=== PATIENT | male | born 1990 | race American Indian/Alaskan Native ===

== ENCOUNTER 2016-10-08 18:45 | Emergency (ER) | payer BC ==
--- NOTE | 2016-10-09 00:28 | Emergency Department Report ---
ED General Adult HPI - General Chief complaint: Dental/Oral Stated complaint: SOB/PAIN ALL OVER/FATIGUE/FREQ URINATION Time Seen by Provider: 10/08/16 22:39 Source: patient Mode of arrival: Ambulatory Limitations: No Limitations - History of Present Illness Initial comments: Patient c/o right tooth ache and jaw pain that radiates into his right caodaism. States had a chip in the tooth 1 week ago. Reports frequent urination w/o dysuria, hesitance. - Related Data Home Medications Medication Instructions Recorded Confirmed Last Taken No Known Home Medications [No 10/08/16 10/08/16 Unknown Reported Home Medications] Allergies Allergy/AdvReac Type Severity Reaction Status Date / Time No Known Allergies Allergy Unverified 02/03/16 09:28 ED Review of Systems ROS: Stated complaint: SOB/PAIN ALL OVER/FATIGUE/FREQ URINATION Other details as noted in HPI ED Past Medical Hx - Past Medical History Previous Medical History?: No - Surgical History Past Surgical History?: No - Social History Smoking Status: Never Smoker Substance Use Type: Alcohol - Medications Home Medications: Home Medications Medication Instructions Recorded Confirmed Last Taken Type No Known Home Medications [No 10/08/16 10/08/16 Unknown History Reported Home Medications] ED Physical Exam - General Limitations: No Limitations ED Course Vital Signs 10/08/16 18:51 Temperature 98.5 F Pulse Rate 109 H Respiratory 18 Rate Blood Pressure 173/110 O2 Sat by Pulse 98 Oximetry Critical care attestation.: If time is entered above; I have spent that time in minutes in the direct care of this critically ill patient, excluding procedure time. ED Disposition Clinical Impression: Toothache, Frequent urination Disposition: DISCHARGED TO HOME OR SELFCARE Is pt being admited?: No Does the pt Need Aspirin: No Condition: Stable Instructions: Toothache (ED), Dysuria (ED) Referrals: PRIMARY CARE, [Primary Care Provider] - 2-3 Days
[2016-10-09 01:10] LABS: Bilirubin,Urine NEG (Negative); Blood,Urine NEG (Negative); Ketones,Urine 20 mg/dL (Negative); Leukocyte Esterase,Urine NEG (Negative); Mucus,Urine FEW /HPF; Nitrite,Urine NEG (Negative); Protein,Urine <15 mg/dL mg/dL (Negative); Urobilinogen,Urine < 2.0 mg/dL (<2.0)
[2016-10-09] MEDS ORDERED: TYLENOL #3 PO ONE (02:03)
--- NOTE | 2016-10-09 02:07 | Emergency Department Report ---
- HPI History of Present Illness: Patient c/o right tooth ache and jaw pain that radiates into his right protestant. States had a chipped tooth in question 1 week ago. Reports increasing thirst and frequent urination w/o dysuria, hesitance. Denies hx/tx of DM or HTN. - Exam Vital Signs: Vital Signs 10/08/16 18:51 Temperature 98.5 F Pulse Rate 109 H Respiratory 18 Rate Blood Pressure 173/110 O2 Sat by Pulse 98 Oximetry Physical Exam: General: Morbidly obese. NAD. MSE screening note: Focused history and physical exam performed. Due to findings the following was ordered: <GERMAN MARK - Last Filed: 10/09/16 05:53> - Exam Vital Signs: Vital Signs 10/08/16 10/09/16 10/09/16 18:51 02:13 02:15 Temperature 98.5 F 98.6 F Pulse Rate 109 H 99 H Respiratory 18 18 18 Rate Blood Pressure 173/110 Blood Pressure 133/92 [Left] O2 Sat by Pulse 98 96 Oximetry 10/09/16 10/09/16 10/09/16 03:30 04:00 05:00 Temperature 98 F Pulse Rate 92 H Respiratory 16 Rate Blood Pressure 115/69 151/84 Blood Pressure 147/79 [Left] O2 Sat by Pulse 98 100 96 Oximetry 10/09/16 10/09/16 10/09/16 06:00 07:00 07:06 Temperature Pulse Rate Respiratory Rate Blood Pressure 141/93 140/79 140/79 Blood Pressure [Left] O2 Sat by Pulse 98 98 98 Oximetry 10/09/16 09:23 Temperature 98.1 F Pulse Rate 90 Respiratory 16 Rate Blood Pressure Blood Pressure 130/76 [Left] O2 Sat by Pulse 99 Oximetry MSE screening note: Focused history and physical exam performed. Due to findings the following was ordered: <CARMEN TATUM - Last Filed: 10/10/16 15:18> Chief Complaint: Dental/Oral Stated Complaint: SOB/PAIN ALL OVER/FATIGUE/FREQ URINATION Time Seen by Provider: 10/08/16 22:39 ED Medical Decision Making - Lab Data Result diagrams: 10/09/16 02:20 10/09/16 02:20 - Medical Decision Making Patient to see MD in main ED. <GERMAN MARK - Last Filed: 10/09/16 05:53> - Lab Data Result diagrams: 10/09/16 02:20 10/09/16 02:20 <CARMEN TATUM - Last Filed: 10/10/16 15:18> ED Disposition for MITESH <GERMAN MARK - Last Filed: 10/09/16 05:53> <CARMEN TATUM - Last Filed: 10/10/16 15:18> Clinical Impression: Toothache, Diabetes mellitus, new onset Disposition: DISCHARGED TO HOME OR SELFCARE Condition: Stable Instructions: How to Check Your Blood Sugar (ED), Diabetes Mellitus Type 2 in Adults (ED), Toothache (ED) Additional Instructions: Is very important that you follow with the primary care doctor provided or with the doctor of your choice for further management of your new onset diabetes. You will need further diabetic teaching including how to check his sugar, dietary changes, weight loss advice, and further medication adjustment. Patient returns symptoms worsen as indicated by discharge instructions. Please follow up with a dentist regarding your fractured painful tooth. Prescriptions: metFORMIN [Glucophage] 500 mg PO BID #60 tablet Ibuprofen [Motrin] 800 mg PO Q8HR PRN #30 tablet PRN Reason: Pain traMADol [Ultram 50 MG tab] 50 mg PO Q6HR PRN #20 tablet PRN Reason: Pain Penicillin Vk [Veetids TAB] 250 mg PO QID #28 tablet Referrals: PRIMARY CARE, [Primary Care Provider] - 2-3 Days JESSICA HEATH MD [Staff Physician] - 3-5 Days
[2016-10-09 02:35] LABS: Basophils % (Auto) 0.6 % (0.0-1.8); Eosinophils % (Auto) 0.9 % (0.0-4.3); Hematocrit 46.3 % (35.5-45.6); Hemoglobin 14.6 gm/dl (11.8-15.2); Mean Corpuscular HGB Conc 32 % (32-34); Mean Corpuscular Volume 78 fl (84-94); Platelet Count 230 K/mm3 (140-440); Red Blood Count 5.94 M/mm3 (3.65-5.03); Red Cell Distribution Width 14.7 % (13.2-15.2); White Blood Count 5.5 K/mm3 (4.5-11.0)
[2016-10-09 02:38] LABS: Mean Corpuscular Hemoglobin 25 pg (28-32)
[2016-10-09 02:57] LABS: Alanine Aminotransferase 25 units/L (7-56); Albumin 4.4 g/dL (3.9-5); Albumin/Globulin Ratio 1.2 %; Alkaline Phosphatase 74 units/L (35-129); BUN/Creatinine Ratio 9.09; Bilirubin,Total 0.5 mg/dL (0.1-1.2); Blood Urea Nitrogen 10 mg/dL (9-20); Calcium 9.4 mg/dL (8.4-10.2); Carbon Dioxide 22 mmol/L (22-30); Chloride 90.4 mmol/L (98-107); Potassium 5.2 mmol/L (3.6-5.0); Sodium 133 mmol/L (137-145); Total Protein 8.2 g/dL (6.3-8.2)
[2016-10-09] MEDS ORDERED: NACL 0.9% 1000 ML 1,000 ML IV ONE ×3 (03:08→08:04)
[2016-10-09] MEDS ORDERED: TORADOL IV ONE (03:08)
[2016-10-09 03:15] LABS: Anion Gap 26 mmol/L
[2016-10-09 03:16] LABS: Glucose 530 mg/dL (75-100)
--- NOTE | 2016-10-09 03:23 | Emergency Department Report ---
ED General Adult HPI - General Chief complaint: Dental/Oral Stated complaint: SOB/PAIN ALL OVER/FATIGUE/FREQ URINATION Time Seen by Provider: 10/08/16 22:39 Source: patient Mode of arrival: Ambulatory Limitations: No Limitations - History of Present Illness Initial comments: 26-year-old obese male with no known past medical history presents to the hospital complains of toothache and generalized body aches. Patient states for the past 1-2 weeks he has had generalized body aches, and today cramping to lower extremities, polyuria, dry mouth, increased thirst. Positive family history of diabetes presents by personal history. Patient also complains of moderate to severe toothache from a cracked tooth 1 week. Pain as aching with radiation to the right ear and right head. No reports of fever. Severity scale (0 -10): 8 - Related Data Previous Rx's Medication Instructions Recorded Last Taken Type Ibuprofen [Motrin] 800 mg PO Q8HR PRN #30 tablet 10/09/16 Unknown Rx Penicillin Vk [Veetids TAB] 250 mg PO QID #28 tablet 10/09/16 Unknown Rx metFORMIN [Glucophage] 500 mg PO BID #60 tablet 10/09/16 Unknown Rx traMADol [Ultram 50 MG tab] 50 mg PO Q6HR PRN #20 tablet 10/09/16 Unknown Rx Allergies Allergy/AdvReac Type Severity Reaction Status Date / Time No Known Allergies Allergy Unverified 02/03/16 09:28 ED Review of Systems ROS: Stated complaint: SOB/PAIN ALL OVER/FATIGUE/FREQ URINATION Other details as noted in HPI Comment: All other systems reviewed and negative Other: Constitutional: No fevers chills Eyes: No eye pain visual changes ENT: As per HPI Neck: Denies pain Respiratory: Denies cough wheezing shortness of breath Cardiovascular: Denies chest pain, palpitations, syncope GI: Denies abdominal pain, nausea, vomiting, diarrhea : Denies dysuria Musculoskeletal: Denies back pain Skin: Denies rash, lesions, erythema Neurologic: Denies headache, numbness, weakness Psychiatric: Denies suicidal ideation, hallucinations ED Past Medical Hx - Past Medical History Previous Medical History?: No - Surgical History Past Surgical History?: No - Social History Smoking Status: Never Smoker Substance Use Type: Alcohol - Medications Home Medications: Home Medications Medication Instructions Recorded Confirmed Last Taken Type Ibuprofen [Motrin] 800 mg PO Q8HR PRN #30 tablet 10/09/16 Unknown Rx Penicillin Vk [Veetids TAB] 250 mg PO QID #28 tablet 10/09/16 Unknown Rx metFORMIN [Glucophage] 500 mg PO BID #60 tablet 10/09/16 Unknown Rx traMADol [Ultram 50 MG tab] 50 mg PO Q6HR PRN #20 tablet 10/09/16 Unknown Rx ED Physical Exam - General Limitations: No Limitations - Other Other exam information: General: No limitations, patient is alert in no acute distress Head exam: Atraumatic, normocephalic Eyes exam: Normal appearance, pupils equal reactive to light, extraocular movements intact ENT: No thrush, cracked tooth #30 with out any gum abscess Neck exam: Normal inspection, full range of motion, no meningismus nontender Respiratory exam: Clear to auscultation bilateral, no wheezes, rales, crackles Cardiovascular: Normal rate and rhythm, normal heart sounds Abdomen: Soft, nondistended, and nontender, with normal bowel sounds, no rebound, or guarding Extremity: Full range of motion normal inspection no deformity Back: Normal Inspection, full range of motion, no tenderness Neurologic: Alert, oriented x3, cranial nerves intact, no motor or sensory deficit Psychiatric: normal affect, normal mood Skin: Warm, dry, intact ED Course Vital Signs 10/08/16 10/09/16 10/09/16 18:51 02:13 02:15 Temperature 98.5 F 98.6 F Pulse Rate 109 H 99 H Respiratory 18 18 18 Rate Blood Pressure 173/110 Blood Pressure 133/92 [Left] O2 Sat by Pulse 98 96 Oximetry 10/09/16 03:30 Temperature 98 F Pulse Rate 92 H Respiratory 16 Rate Blood Pressure Blood Pressure 147/79 [Left] O2 Sat by Pulse 98 Oximetry - Reevaluation(s) Reevaluation #1: 10/09/16 03:22 Repeat blood pressure showed spontaneously improved without medication. Normal saline, insulin, and Toradol ordered ED Medical Decision Making - Lab Data Result diagrams: 10/09/16 02:20 10/09/16 02:20 Lab Results 10/08/16 10/09/16 10/09/16 Range/Units 00:51 02:20 02:20 WBC 5.5 (4.5-11.0) K/mm3 RBC 5.94 H (3.65-5.03) M/mm3 Hgb 14.6 (11.8-15.2) gm/dl Hct 46.3 H (35.5-45.6) % MCV 78 L (84-94) fl MCH 25 L (28-32) pg MCHC 32 (32-34) % RDW 14.7 (13.2-15.2) % Plt Count 230 (140-440) K/mm3 Lymph % (Auto) 46.0 H (13.4-35.0) % [place] % (Auto) 10.0 H (0.0-7.3) % Eos % (Auto) 0.9 (0.0-4.3) % Baso % (Auto) 0.6 (0.0-1.8) % Lymph # 2.5 (1.2-5.4) K/mm3 [place] # 0.6 (0.0-0.8) K/mm3 Eos # 0.0 (0.0-0.4) K/mm3 Baso # 0.0 (0.0-0.1) K/mm3 Seg Neutrophils % 42.5 (40.0-70.0) % Seg Neutrophils # 2.3 (1.8-7.7) K/mm3 Sodium 133 L (137-145) mmol/L Potassium 5.2 H (3.6-5.0) mmol/L Chloride 90.4 L (98-107) mmol/L Carbon Dioxide 22 (22-30) mmol/L Anion Gap 26 mmol/L BUN 10 (9-20) mg/dL Creatinine 1.1 (0.8-1.5) mg/dL Estimated GFR > 60 ml/min BUN/Creatinine Ratio 9.09 % Glucose 530 H* (75-100) mg/dL POC Glucose (70-105) Calcium 9.4 (8.4-10.2) mg/dL Total Bilirubin 0.5 (0.1-1.2) mg/dL AST 26 (5-40) units/L ALT 25 (7-56) units/L Alkaline Phosphatase 74 (35-129) units/L Total Protein 8.2 (6.3-8.2) g/dL Albumin 4.4 (3.9-5) g/dL Albumin/Globulin Ratio 1.2 % Urine Color Straw (Yellow) Urine Turbidity Clear (Clear) Urine pH 6.0 (5.0-7.0) Ur Specific [place] 1.037 H (1.003-1.030) Urine Protein <15 mg/dl (Negative) mg/dL Urine Glucose (UA) >=500 (Negative) mg/dL Urine Ketones 20 (Negative) mg/dL Urine Blood Neg (Negative) Urine Nitrite Neg (Negative) Urine Bilirubin Neg (Negative) Urine Urobilinogen < 2.0 (<2.0) mg/dL Ur Leukocyte Esterase Neg (Negative) Urine WBC (Auto) 1.0 (0.0-6.0) /HPF Urine RBC (Auto) 2.0 (0.0-6.0) /HPF Urine Mucus Few /HPF 10/09/16 Range/Units 04:19 WBC (4.5-11.0) K/mm3 RBC (3.65-5.03) M/mm3 Hgb (11.8-15.2) gm/dl Hct (35.5-45.6) % MCV (84-94) fl MCH (28-32) pg MCHC (32-34) % RDW (13.2-15.2) % Plt Count (140-440) K/mm3 Lymph % (Auto) (13.4-35.0) % [place] % (Auto) (0.0-7.3) % Eos % (Auto) (0.0-4.3) % Baso % (Auto) (0.0-1.8) % Lymph # (1.2-5.4) K/mm3 [place] # (0.0-0.8) K/mm3 Eos # (0.0-0.4) K/mm3 Baso # (0.0-0.1) K/mm3 Seg Neutrophils % (40.0-70.0) % Seg Neutrophils # (1.8-7.7) K/mm3 Sodium (137-145) mmol/L Potassium (3.6-5.0) mmol/L Chloride (98-107) mmol/L Carbon Dioxide (22-30) mmol/L Anion Gap mmol/L BUN (9-20) mg/dL Creatinine (0.8-1.5) mg/dL Estimated GFR ml/min BUN/Creatinine Ratio % Glucose (75-100) mg/dL POC Glucose 388 H (70-105) Calcium (8.4-10.2) mg/dL Total Bilirubin (0.1-1.2) mg/dL AST (5-40) units/L ALT (7-56) units/L Alkaline Phosphatase (35-129) units/L Total Protein (6.3-8.2) g/dL Albumin (3.9-5) g/dL Albumin/Globulin Ratio % Urine Color (Yellow) Urine Turbidity (Clear) Urine pH (5.0-7.0) Ur Specific [place] (1.003-1.030) Urine Protein (Negative) mg/dL Urine Glucose (UA) (Negative) mg/dL Urine Ketones (Negative) mg/dL Urine Blood (Negative) Urine Nitrite (Negative) Urine Bilirubin (Negative) Urine Urobilinogen (<2.0) mg/dL Ur Leukocyte Esterase (Negative) Urine WBC (Auto) (0.0-6.0) /HPF Urine RBC (Auto) (0.0-6.0) /HPF Urine Mucus /HPF - Medical Decision Making pt glucose improved with ed tx. pt has mild hyperkalemia that should improve after Regular insulin IV (17 Units total given in ED). abx will be given for tooth fracture with pain med. Outpt f/u will be encouraged for further dM tx and med adjustment - Differential Diagnosis diabetes, UTI, viral syndrome, dental caries, dental infection Critical Care Time: No Critical care attestation.: If time is entered above; I have spent that time in minutes in the direct care of this critically ill patient, excluding procedure time. ED Disposition Clinical Impression: Toothache, Diabetes mellitus, new onset Disposition: DISCHARGED TO HOME OR SELFCARE Is pt being admited?: No Condition: Stable Instructions: Toothache (ED), Diabetes Mellitus Type 2 in Adults (ED), How to Check Your Blood Sugar (ED) Additional Instructions: Is very important that you follow with the primary care doctor provided or with the doctor of your choice for further management of your new onset diabetes. You will need further diabetic teaching including how to check his sugar, dietary changes, weight loss advice, and further medication adjustment. Patient returns symptoms worsen as indicated by discharge instructions. Please follow up with a dentist regarding your fractured painful tooth. Prescriptions: Ibuprofen [Motrin] 800 mg PO Q8HR PRN #30 tablet PRN Reason: Pain Penicillin Vk [Veetids TAB] 250 mg PO QID #28 tablet metFORMIN [Glucophage] 500 mg PO BID #60 tablet traMADol [Ultram 50 MG tab] 50 mg PO Q6HR PRN #20 tablet PRN Reason: Pain Referrals: PRIMARY CARE,MD [Primary Care Provider] - 2-3 Days JESSICA HEATH MD [Staff Physician] - 3-5 Days Time of Disposition: 06:00
[2016-10-09 09:23] VITALS: BP 130/76
== END 2016-10-09 09:24 | disposition home or self-care (01) ==
LOC: ED 18:45
DX: K08.89 Other specified disorders of teeth and supporting structures (principal); E11.9 Type 2 diabetes mellitus without complications
CPT/HCPCS: 36415; 80053; 81001; 82962; 85025; 96361; 96372; 96374; 96375; 96376; 99284; J1885; J7030; J1815